=== PATIENT | male | born 1950 | race African-American/Black ===

== ENCOUNTER 2023-03-28 14:02 | Emergency (ER) | payer MEDICARE, BC ==
[~2023-03-28] VITALS: Ht 198.1 cm; Wt 130.0 kg
[2023-03-28 14:15] VITALS: BP 137/60; PULSE 71; RESP 16; TEMP 99; O2SAT 95
[2023-03-28 15:37] LABS: CLARITY URINE CLOUDY (CLEAR); COLOR URINE DARK YELLOW (YELLOW); GLUCOSE URINE NEGATIVE (NEGATIVE); KETONES URINE TRACE (NEGATIVE); LEUKOCYTE ESTERASE URINE 2+ (NEGATIVE); NITRITE URINE POSITIVE (NEGATIVE); OCCULT BLOOD URINE NEGATIVE (NEGATIVE); PROTEIN URINE TRACE (NEGATIVE); SPECIFIC GRAVITY URINE 1.028 (1.005-1.030)
[2023-03-28 15:40] LABS: BASOPHILS % 0.5 % (0.0-2.0); EOSINOPHILS % 0.7 % (0.0-5.0); HEMATOCRIT. 41.1 % (42.0-52.0); HEMOGLOBIN. 13.6 g/dL (14.0-18.0); LYMPHOCYTES % 9.5 % (20.0-50.0); MEAN CORPUSCULAR VOLUME 90.8 fL (80.0-94.0); MEAN PLATELET VOLUME 8.7 fl (7.4-10.4); MONOCYTES % 8.6 % (2.0-8.0); NEUTROPHILS % 80.7 % (40.0-76.0); PLATELET 256 x1000/uL (130-400); RED BLOOD CELL COUNT 4.53 mill/uL (4.7-6.1); RED CELL DISTRIBUTION WIDTH 14.1 % (11.6-14.6); WHITE BLOOD COUNT 15.7 x1000/uL (4.5-11.0)
[2023-03-28 16:01] LABS: ALANINE AMINOTRANSFERASE 13 IU/L (10-49); ALBUMIN 4.2 g/dL (3.2-4.8); ASPARTATE AMINOTRANSFERASE 11 IU/L (<34); BILIRUBIN TOTAL 1.8 mg/dL (0.1-1.0); CALCIUM 9.3 mg/dL (8.7-10.4); CARBON DIOXIDE 29 mEq/L (21-32); CHLORIDE 107 mEq/L (98-107); CREATININE 0.9 mg/dL (0.6-1.3); GLUCOSE 101 mg/dL (70-105); PROTEIN TOTAL 7.1 g/dL (6.0-8.3); SODIUM 140 mEq/L (136-145); UREA NITROGEN BLOOD 11 mg/dL (9-23)
[2023-03-28 16:13] LABS: BACTERIA URINE 3+; CALCIUM OXALATE CRYSTALS URINE 2+ /lpf; RBC URINE 0-2 /hpf (0-2); SQUAMOUS EPITHELIAL CELL URINE 1+ /lpf (RARE/1+)
[2023-03-28] MEDS ORDERED: CEFTRIAXONE SODIUM 1 G/VIAL IM ONE (18:30)
[2023-03-28] MEDS ORDERED: KETOROLAC 60MG/2ML VIAL IM ONE (18:30)
[2023-03-28] MEDS ORDERED: ACET-2708 MT (19:58)
[2023-03-28] MEDS ORDERED: IBUP-1525 MT (19:58)
[2023-03-28] MEDS ORDERED: CEFD300C3 MT (19:58)
== END 2023-03-28 20:41 | disposition home or self-care (01) ==
LOC: ER 14:02
DX: N39.0 Urinary tract infection, site not specified (principal); J44.9 Chronic obstructive pulmonary disease, unspecified; I11.9 Hypertensive heart disease without heart failure; Z98.890 Other specified postprocedural states
CPT/HCPCS: 99283; 80053; 81003; 85025; 87086; 87186; 87077; 36415; 96372; J0696; J1885